=== PATIENT | female | born 1960 | race African-American/Black ===

== ENCOUNTER → 2022-07-16 | Outpatient (CLI) | payer OTHER ==
[~2022-07-16] MED LIST: CLARITIN 1010 MG/TAB PO; MOTRIN 200200 MG/TAB PO; MULTIPLE VITAMI1 CAP PO
== END ==
LOC: COL.RAD 14:01
DX: M47.816 Spondylosis without myelopathy or radiculopathy, lumbar region (principal); M54.2 Cervicalgia

== ENCOUNTER → 2022-12-23 | Outpatient (CLI) | payer OTHER | LOC: COL.RAD 07:44 | DX: M54.2 Cervicalgia (principal) ==

== ENCOUNTER → 2023-05-04 | Outpatient (CLI) | payer OTHER | LOC: MHCPAIN 10:37 | DX: M79.641 Pain in right hand (principal); M79.642 Pain in left hand; M79.7 Fibromyalgia; M79.2 Neuralgia and neuritis, unspecified | CPT/HCPCS: G0463 ==

== ENCOUNTER → 2023-08-27 | Outpatient (CLI) | payer OTHER | LOC: MHCPAIN 14:23 | DX: M79.641 Pain in right hand (principal); M79.7 Fibromyalgia | CPT/HCPCS: G0463 ==

== ENCOUNTER → 2023-11-12 | Outpatient (CLI) | payer OTHER | LOC: MHCPAIN 13:45 | DX: M79.641 Pain in right hand (principal); M79.18 Myalgia, other site; M79.2 Neuralgia and neuritis, unspecified | CPT/HCPCS: G0463 ==

== ENCOUNTER → 2024-01-07 | Outpatient (CLI) | payer OTHER | LOC: MHCPAIN 12:55 | DX: M65.831 Other synovitis and tenosynovitis, right forearm (principal); G56.01 Carpal tunnel syndrome, right upper limb; M79.18 Myalgia, other site | CPT/HCPCS: G0463 ==